=== PATIENT | female | born 1995 | race Caucasian/White ===

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

== ENCOUNTER 2017-03-01 16:07 | Emergency (ER) | payer MEDICAID ==
[2017-03-01 16:23] VITALS: BP 140/81
--- NOTE | 2017-03-01 16:41 | ERNOTE ---
Time Seen by Provider: 03/01/17 16:16 Stated Complaint: SINUS INFECTION Presenting Symptoms:: cough, runny nose Source: patient Exam Limitations: no limitations Immunizations: IMMUNIZATION HX Immunizations Up to Date Yes History of Influenza Vaccine Yes Hx Pneumococcal Vaccination No Allergies/Adverse Reactions: Allergies codeine [Codeine] Allergy (Verified 03/01/17 16:20) Home Medications: HOME MEDICATIONS Omeprazole 0 mg PO DAILY 09/27/15 [Last Taken Unknown] Ondansetron HCl [Zofran] 0 mg PO BID 09/27/15 [Last Taken Unknown] Sucralfate [Carafate] 0 gm PO DAILY 09/27/15 [Last Taken Unknown] traZODone HCL [Desyrel] 0 mg PO DAILY 09/27/15 [Last Taken Unknown] Meclizine HCl 05/21/16 [Last Taken Unknown] Amox Tr/Potassium Clavulanate [Augmentin 875-125 Tablet] 875 mg PO Q12H #20 tab 03/01/17 [Last Taken Unknown] - History of Present Ilness Narrative: Patient presents with continuing sinus pressure and pain, runny nose and cough. Patient has been on clindamycin for the past 5 days and is not helping. Timing: constant Severity: moderate Frequency/Possible Cause: Reports: no prior episodes Modifying Factors - Improves: Reports: nothing Modifying Factors - Worsens: Reports: nothing Associated Symptoms: Reports: cough Prior Treatment: Reports: recently seen, treated by physician, recently hospitalized, currently on antibiotics Review of Systems - Review of Systems Constitutional: Present: See HPI EYE: Present: no symptoms reported ENT: Present: See HPI, nose congestion, other - sinus pressure Respiratory: Present: cough Cardiology: Present: no symptoms reported Gastrointestinal/Abdominal: Present: no symptoms reported Genitourinary: Present: no symptoms reported Musculoskeletal: Present: no symptoms reported Skin: Present: no symptoms reported Neurological: Present: no symptoms reported Endocrine: Present: no symptoms reported Hematologic/Lymphatic: Present: no symptoms reported Psych: Present: no symptoms reported - Patient's Past Medical History Patient History - Medical: GERD Patient History - Cardiac/Respiratory: No pertinent hx Patient History - Cancer: No Hx of Cancer Patient History - Surgical Procedures: Cholecystectomy, T & A Patient History - Other: None LMP (Calendar): 09/14/15 - Family History mom Family History - Medical: History Unknown dad Family History - Medical: History Unknown - Social History Living Situations: home Abuse History: No History of abuse Psych History: No pertinent hx Smoking Status: Never smoker Alcohol Use: none Drug Use: none - Immunizations Immunizations Up to Date: Yes Hx Pneumococcal Vaccination: No History of Influenza Vaccine: Yes Physical Exam - Physical Exam General Appearance: Present: wd/wn, alert, moderate distress Head Exam: Present: normal inspection Eye Exam: Normal inspection: bilateral, PERRL: bilateral Ears, Nose, Throat: Present: nasal congestion, sinus pain/drainage, normal pharynx Neck: Present: normal inspection, nontender Respiratory: Present: no respiratory distress, no accessory muscle use, chest nontender, other - fine course breath sounds Cardiovascular/Chest: Present: regular rate, rhythm, no murmur, normal peripheral pulses Gastrointestinal/Abdominal: Present: normal bowel sounds, nontender, nondistended, soft, no organomegaly Rectal Exam: Present: deferred Back Exam: Present: normal inspection, normal range of motion Extremity Exam: Present: normal inspection, non-tender, no edema, normal range of motion Neurological Exam: Present: alert, oriented, normal mood/affect Skin Exam: Present: normal color, warm/dry Lymphatic Exam: Present: no adenopathy ED Progress - Vital Signs Patient's Vital Signs:: I have reviewed the patient's vital signs. Vital Signs: Vital Signs 03/01/17 03/01/17 16:12 16:21 Temperature 36.7 C 36.7 C Pulse Rate 91 91 Respiratory 14 14 Rate Blood Pressure 140/81 140/81 O2 Sat by Pulse 97 97 Oximetry - Progress/Reassessment Chief Complaint: Upper Respiratory Symptoms Plan - Plan Plan: Patient does not appear to be responding to clindamycin. She has no apparent sinus infection we will change her over to Augmentin 875 she agrees to follow- up with her family physician in a week to 10 days Departure - Departure Clinical Impression: Acute maxillary sinusitis Qualifiers: Recurrence: not specified as recurrent Qualified Code(s): J01.00 - Acute maxillary sinusitis, unspecified Upper respiratory infection Qualifiers: URI type: unspecified URI Qualified Code(s): J06.9 - Acute upper respiratory infection, unspecified Disposition: Home self-care Condition: Good Instructions: Sinusitis, Adult, [id number], Upper Respiratory Infection, Adult, [id number] Referrals: Geri Davenport, PROJECT/PRODUCTION MANAGER IMAGING [Primary Care Provider] - Prescriptions: Amox Tr/Potassium Clavulanate [Augmentin 875-125 Tablet] 875 mg PO Q12H #20 tab
== END 2017-03-01 16:44 | disposition home or self-care (01) ==
LOC: ER 16:07
DX: J06.9 Acute upper respiratory infection, unspecified (principal); J01.00 Acute maxillary sinusitis, unspecified

== ENCOUNTER 2017-04-12 13:30 | Emergency (ER) | payer MEDICAID ==
[2017-04-12] MEDS ORDERED: KETOROLAC TROMETHAMINE 60 MG/2 ML VIAL IM ONE ×2 (13:54→13:57)
[2017-04-12] MEDS ORDERED: PROMETHAZINE HCL 25 MG/ML AMPUL IM ONE (13:54)
[2017-04-12] MEDS ORDERED: PROMETHAZINE HCL 25 MG/ML AMPUL ONE (13:57)
[2017-04-12 14:09] LABS: Hematocrit 42.1 % (37.0-47.0); Hemoglobin 14.6 gm/dL (12.5-16.0); Mean Cell Volume 84.5 fl (78-100); Mean Corpuscular Hemoglobin 29.3 pg (27-31); Mean Corpuscular Hgb Conc 34.7 g/dl (32-36); Mean Platelet Volume 11.3 fl (6.0-9.5); Neutrophil # 4.4 K/mm3 (1.3-6.0); Neutrophil % 69.5 % (42-75.0); Platelet Count 327 K/mm3 (150-450); Red Blood Count 4.98 M/mm3 (4.2-5.4); Red Cell Distribution Width 12.2 % (11.5-14.0); White Blood Count 6.3 K/mm3 (4.0-10.5)
[2017-04-12 14:23] LABS: Albumin * 4.4 gm/dl (3.4-5.0); Anion Gap 12.5 mmol/L (6.8-13.8); BUN/Creatinine Ratio 8.7 (9.0-21.6); Bilirubin, Total 0.6 mg/dL (0.0-1.1); Ca. Corrected For Albumin 8.7 mg/dL (8.4-10.2); Calcium * 9.3 mg/dL (7.9-10.9); Carbon Dioxide 26.8 mmol/L (24-32.6); Potassium 3.3 mmol/L (3.4-4.6)
[2017-04-12 14:28] LABS: Urine Bilirubin Negative (NEGATIVE); Urine Blood 250 /ul (NEGATIVE); Urine Color Yellow; Urine Ketone 5 mg/dL (NEGATIVE); Urine Nitrite Negative (NEGATIVE); Urine Protein 30 mg/dL (NEGATIVE); Urine Specific Gravity 1.025 SP.GR. (1.005-1.010); Urine Urobilinogen Normal (NORMAL)
[2017-04-12 14:29] LABS: Urine Appearance Slightly Cloudy; Urine Bacteria None Seen; Urine RBC >50 /hpf (0-5); Urine WBC 0-5 /hpf (0-5)
--- NOTE | 2017-04-12 15:58 | ERNOTE ---
Abdominal HPI - Narrative Date of Service: 04/12/17 - General Chief Complaint: Abdominal Pain Time Seen by Provider: 04/12/17 13:47 Source: patient, RN notes reviewed, past records Exam Limitations: no limitations - Immun/Allergies/Home Medications Immunizatons: IMMUNIZATION HX Immunizations Up to Date Yes History of Influenza Vaccine Yes Hx Pneumococcal Vaccination No Allergies/Adverse Reactions: Allergies codeine [Codeine] Allergy (Verified 04/12/17 13:38) Home Medications: HOME MEDICATIONS traZODone HCL [Desyrel] 150 mg PO DAILY 09/27/15 [Last Taken Unknown] - History of Present Illness Narrative: 22 year old female presents to the ED for lower abdominal pain that began yesterday. She also reports nausea and 1 episode of diarrhea. She has a history of gastroparesis. She is out of the medication that she routinely takes for this. She has not taken anything for pain. She has been laying down most of the day today because her pain worsens with activity. Timing: constant Quality: severe, cramping Activities at Onset: none Prior Abdominal Problems: Present: similar symptoms Prior Treatment: Absent: recently seen, currently on antibiotics Review of Systems - Review of Systems Constitutional: Present: chills, fatigue, malaise. Absent: fever EYE: Present: no symptoms reported ENT: Absent: nose congestion, sore throat Respiratory: Absent: shortness of breath, cough Cardiology: Absent: chest pain, edema Gastrointestinal/Abdominal: Present: nausea, diarrhea, abdominal pain, eating less, drinking less. Absent: vomiting, constipation Genitourinary: Absent: frequency, dysuria, hematuria Musculoskeletal: Present: back pain. Absent: neck pain Skin: Absent: lesions, lumps, change in color Neurological: Absent: headache, dizziness/light-headedness Endocrine: Present: no symptoms reported Hematologic/Lymphatic: Present: no symptoms reported Psych: Present: no symptoms reported, depressed - Patient's Past Medical History Patient History - Medical: GERD Patient History - Cardiac/Respiratory: No pertinent hx Patient History - Cancer: No Hx of Cancer Patient History - Surgical Procedures: Cholecystectomy, T & A Patient History - Other: None LMP (females 10-50): now LMP (Calendar): 04/12/17 - Family History mom Family History - Medical: History Unknown dad Family History - Medical: History Unknown - Social History Living Situations: home Abuse History: No History of abuse Psych History: No pertinent hx - Immunizations Immunizations Up to Date: Yes Hx Pneumococcal Vaccination: No History of Influenza Vaccine: Yes Physical Exam - Physical Exam General Appearance: Present: wd/wn, alert, no apparent distress Neck: Present: normal inspection, nontender, supple, full range of motion Respiratory: Present: no respiratory distress, normal breath sounds, no accessory muscle use, lungs clear Cardiovascular/Chest: Present: regular rate, rhythm, no murmur, normal peripheral pulses Gastrointestinal/Abdominal: Present: normal bowel sounds, nondistended, soft, tenderness - diffuse, worse in lower abdomen bilaterally. Absent: guarding, rebound, mass Back Exam: Present: normal range of motion, CVA tenderness (R), CVA tenderness ( L). Absent: no vertebral tenderness Extremity Exam: Present: normal inspection, normal range of motion, no edema Neurological Exam: Present: alert, oriented, normal mood/affect, no motor/ sensory deficits Skin Exam: Present: warm/dry, pallor ED Progress - Results and Orders Patient's Lab Results:: I have reviewed the patient's lab results. - Vital Signs Patient's Vital Signs:: I have reviewed the patient's vital signs. Vital Signs: Vital Signs 04/12/17 04/12/17 04/12/17 13:35 14:43 15:04 Temperature 36.6 C Pulse Rate 75 71 74 Respiratory 12 12 12 Rate Blood Pressure 142/89 134/86 132/84 O2 Sat by Pulse 99 99 99 Oximetry - X-Ray X-Ray #1 X-Ray: abdomen Interpretation: Reviewed by me X-ray Comments: Nonspecific bowel gas pattern - CT/Ultrasound CT/Ultrasound Narrative: Stone protocol CT shows no evidence of renal calculi or hydronephrosis. No other acute intra-abdominal pathology demonstrated. - Progress/Reassessment Chief Complaint: Abdominal Pain Progress:: Improved Plan - Plan Plan: Pain improved with Toradol and Phenergan. Labwork was unremarkable aside from blood present on cath UA. Suspected stone d/t flank pain, CT is negative. No clear etiology determined for the abdominal pain. Discussed with patient the possibility that her symptoms are d/t her being off of her routine medications for her gastroparesis. She is to f/u with her PCP to have these refilled. Departure Clinical Impression: Abdominal pain Qualifiers: Abdominal location: generalized Qualified Code(s): R10.84 - Generalized abdominal pain - Departure Disposition: Home Follow Up Needed Condition: Good Instructions: Abdominal Pain, Adult, [id number] Additional Instructions: Soft, bland diet Adequate fluid intake Follow up with your PCP to get your medications refilled Referrals: Geri Davenport, SUPERINTENDENT METERS [Primary Care Provider] -
[2017-04-12 16:01] VITALS: BP 126/74
== END 2017-04-12 16:03 | disposition home or self-care (01) ==
LOC: ER 13:30
DX: R10.84 Generalized abdominal pain (principal)